=== PATIENT | female | born 2000 | race African-American/Black ===

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

== ENCOUNTER 2019-05-23 19:01 | Emergency (ER) | payer OTHER ==
[~2019-05-23] VITALS: Ht 165.1 cm; Wt 89.8 kg
[~2019-05-23 19:01] MED LIST: MEDR150D3 IM; OMEP-229 PO; ONDA4TAB10 SL; SULF1TAB24 PO
[2019-05-23 19:16] VITALS: BP 145/97
[2019-05-23] MEDS ORDERED: NAPROXEN 500 MG TABLET PO STA (19:27)
[2019-05-23] MEDS ORDERED: AMOXICILLIN 250 MG CAPSULE. PO ONE (19:30)
[2019-05-23] MEDS ORDERED: CYCLOBENZAPRINE 10 MG TABLET. PO ONE (19:30)
[2019-05-23] MEDS ORDERED: HYDROcodone/APAP 5/325MG 1 TAB TABLET PO ONE (19:30)
[2019-05-23] MEDS ORDERED: AMOX875T PO (19:53)
[2019-05-23] MEDS ORDERED: HYDR-3164 PO (19:53)
[2019-05-23] MEDS ORDERED: NAPR-514 PO (19:53)
--- NOTE | 2019-05-23 19:53 | PHYS DOC ---
Past Medical History Past Medical History: No Pertinent History Past Surgical History: No Surgical History Alcohol Use: None Drug Use: Marijuana Adult General Chief Complaint Chief Complaint: Neck Pain HPI HPI Patient is a 19 year old female who presents to the ED today complaining of moderate pain to the right ear that began today. Patient reports the pain is throbbing and radiates to the right side of the neck. Denies any fever, coughing, nasal congestion. Denies any relieving factors to the pain. Review of Systems Review of Systems Constitutional: Denies fever or chills [] Eyes: Denies change in visual acuity, redness, or eye pain [] HENT: Reports right ear pain. Denies nasal congestion or sore throat [] Respiratory: Denies cough or shortness of breath [] Cardiovascular: No additional information not addressed in HPI [] GI: Denies abdominal pain, nausea, vomiting, bloody stools or diarrhea [] : Denies dysuria or hematuria [] Musculoskeletal: Reports pain radiating from the right ear into the right side of the neck. Denies back pain or joint pain [] Integument: Denies rash or skin lesions [] Neurologic: Denies headache, focal weakness or sensory changes [] All other systems were reviewed and found to be within normal limits, except as documented in this note. Current Medications Current Medications Current Medications Medications (Trade) Dose Ordered Sig/Robert Start Time Stop Time Status Last Admin Dose Admin Acetaminophen/ Hydrocodone Bitart (Lortab 5/325) 1 tab 1X ONCE 05/23/19 19:30 05/23/19 19:31 DC Amoxicillin (Amoxil) 500 mg 1X ONCE 05/23/19 19:30 05/23/19 19:31 DC Cyclobenzaprine HCl (Flexeril) 10 mg 1X ONCE 05/23/19 19:30 05/23/19 19:31 DC Naproxen (Naprosyn) 500 mg 1X STAT 05/23/19 19:27 05/23/19 19:29 DC Allergies Allergies Allergies Coded Allergies Type Severity Reaction Last Updated Verified No Known Drug Allergies 03/01/16 No Physical Exam Physical Exam Constitutional: Well developed, well nourished, no acute distress, non-toxic appearance. [] HENT: Normocephalic, atraumatic, bilateral external ears normal, oropharynx moist, no oral exudates, nose normal. [] Right TM is moderately injected with effusion. Eyes: PERRLA, EOMI, conjunctiva normal, no discharge. [] Neck: Normal range of motion, no tenderness, supple, no stridor. [] Cardiovascular:Heart rate regular rhythm, no murmur [] Lungs & Thorax: Bilateral breath sounds clear to auscultation [] Abdomen: Bowel sounds normal, soft, no tenderness, no masses, no pulsatile masses. [] Skin: Warm, dry, no erythema, no rash. [] Back: No tenderness, no CVA tenderness. [] Extremities: No tenderness, no cyanosis, no clubbing, ROM intact, no edema. [] Neurologic: Alert and oriented X 3, normal motor function, normal sensory function, no focal deficits noted. [] Psychologic: Affect normal, judgement normal, mood normal. [] Current Patient Data Vital Signs Vital Signs Date Time Temp Pulse Resp B/P (MAP) Pulse Ox O2 Delivery O2 Flow Rate FiO2 05/23/19 19:01 98.1 74 20 145/97 (113) 98 Room Air 98.1 EKG EKG [] Radiology/Procedures Radiology/Procedures [] Course & Med Decision Making Course & Med Decision Making Pertinent Labs and Imaging studies reviewed. (See chart for details) This is a 19-year-old female patient with a right otitis media with effusion. Discharged with amoxicillin, given prescription for naproxen as well as hydrocodone as needed for pain. Follow-up with primary care doctor in 1-2 weeks. Also ENT provided. Dragon Disclaimer Dragon Disclaimer This electronic medical record was generated, in whole or in part, using a voice recognition dictation system. Departure Departure Impression: Primary Impression: Right otitis media Additional Impression: Neck pain on right side Disposition: HOME, SELF-CARE Condition: STABLE Referrals: NO PCP (PCP) CHANELLE DENNEY MD follow up in 1-2 weeks Patient Instructions: Otitis Media, Adult, [id number] Additional Instructions: You were evaluated in the emergency room and noted to have an ear infection, take the prescribed antibiotics until completed. Take the pain medicine as needed for pain. Follow-up with your own doctor in 1-2 weeks. Scripts Hydrocodone/Apap 5-325 (NORCO 5-325 TABLET) 1 Each Tablet 1 TAB PO Q6HRS PRN for PAIN, #12 TAB Prov: MUTUNGA,[employer] 05/23/19 Naproxen (NAPROXEN) 500 Mg Tablet 1 TAB PO BID for pain for 30 Days, #20 TAB 0 Refills Prov: SUDHEER BONILLA APRN 05/23/19 Amoxicillin (AMOXICILLIN) 875 Mg Tablet 1 TAB PO BID, #20 TAB Prov: SUDHEER BONILLA APRN 05/23/19 Problem Qualifiers Primary Impression: Right otitis media Otitis media type: other nonsuppurative Chronicity: acute Recurrence: non-recurrent Qualified Codes: H65.191 - Other acute nonsuppurative otitis media, right ear SUDHEER BONILLA APRN May 23, 2019 19:53
== END 2019-05-23 20:20 | disposition home or self-care (01) ==
LOC: ER 19:01
DX: H65.191 Other acute nonsuppurative otitis media, right ear (principal); M54.2 Cervicalgia
CPT/HCPCS: 99284